=== PATIENT | male | born 1975 | race Caucasian/White ===

== ENCOUNTER 2020-02-10 15:00 | Emergency (ER) | payer OTHER ==
[2020-02-10 15:28] VITALS: BP 151/87; PULSE 114; TEMP 97.2; BMI 27.3
[2020-02-10 19:33] LABS: BASO % 0.4 % (0-2.0); EOS % 0.8 % (0-4.5); HEMATOCRIT 42.2 % (35.4-49); HEMOGLOBIN 14.9 GM/dL (11.7-16.9); LYMPH % 25.7 % (8-40); MCH 30.2 pg (25.7-33.7); MCHC 35.4 g/dl (32.0-35.9); MEAN CELL VOLUME 85.2 fl (80-96); MEAN PLT VOLUME 8.9 fl (7.5-11.1); MONO % 10.6 % (3.8-10.2); NEUT % 62.5 % (42.8-82.8); PLATELET COUNT 272 K/MM3 (134-434); RBC 4.95 M/mm3 (4.00-5.60); RDW 12.6 % (11.9-15.9)
[2020-02-10 19:41] LABS: INR 1.02 (0.83-1.09); PROTHROMBIN TIME (PATIENT) 12.3 SEC (9.7-13.0)
[2020-02-10] MEDS ORDERED: ACETAMINOPHEN 1000 MG/100 ML VIAL (NON FORMULARY) IVPB ONE (19:46)
[2020-02-10 19:51] LABS: CHLORIDE 100 mmol/L (98-107); POTASSIUM 4.2 mmol/L (3.5-5.1); SODIUM 135 mmol/L (136-145)
[2020-02-10 19:54] LABS: CALCIUM 10.2 mg/dL (8.5-10.1)
[2020-02-10 19:55] LABS: ALBUMIN 4.6 g/dl (3.4-5.0); ANION GAP 9 MMOL/L (8-16); BLOOD UREA NITROGEN 11.7 mg/dL (7-18); CO2 27 mmol/L (21-32); GLUCOSE,RANDOM 144 mg/dL (74-106)
[2020-02-10 19:58] LABS: CREATININE 0.9 mg/dL (0.55-1.3); SGOT/AST 34 U/L (15-37); SGPT/ALT 57 U/L (13-61)
[2020-02-10 19:59] LABS: CHOLESTEROL 71 mg/dL (50-200)
[2020-02-10 20:00] LABS: BILIRUBIN,TOTAL 0.7 mg/dL (0.2-1); TRIGLYCERIDES 172 mg/dL (0-150)
[2020-02-10 20:01] LABS: ALK PHOS 75 U/L (45-117); LDL CHOLESTEROL (ONLY SJRH) 33 mg/dL (5-100)
[2020-02-10 20:03] LABS: HDL CHOLESTEROL 24 mg/dL (40-60)
[2020-02-10] MEDS ORDERED: ACETAMINOPHEN INJECTION 100 ML IVPB ONE (21:19)
== END 2020-02-11 02:29 | disposition left against medical advice (07) ==
LOC: JER 15:00
PROC: 3E0333Z Introduction of Anti-inflammatory into Peripheral Vein, Percutaneous Approach (ICD-10-PCS; principal; 2020-02-10)
DX: R51.9 Headache, unspecified (principal)
CPT/HCPCS: 36415; 70450-TC; 70547-TC; 70551-TC; 71046-TC-FY; 72141-TC; 80053; 80061; 82550; 83721; 84484; 85025; 85379; 85610; 85730; 86850; 86900; 86901; 93005; 93010; 99285-25; J0131